=== PATIENT | female | born 1990 | race Caucasian/White ===

== ENCOUNTER 2019-11-09 11:05 | Emergency (ER) | payer OTHER, SELFPAY ==
[2019-11-09 11:17] VITALS: BP 104/49; PULSE 80; RESP 14; TEMP 36.7; O2SAT 100
--- NOTE | 2019-11-09 12:01 | ED.GENADULT ---
HPI - General Adult General Chief complaint: Upper Respiratory Infection Stated complaint: cough/burning in lungh Time Seen by Provider: 11/09/19 12:01 Source: patient and RN notes reviewed Mode of arrival: ambulatory Limitations: no limitations History of Present Illness HPI narrative: 29-year-old 20 weeks female presents with complaints of sore throat and cough for the past 2 days. Tylenol (last this morning @07:00) with little relief. No high fevers, drooling, neck or throat swelling. Pain is bilateral. Hurts to swallow. No voice change. Exacerbation factors consist of eating and drinking. No rhinorrhea. Nasal congestion. No nausea, vomiting, or abdominal pain. Tolerating liquids well. Denies chills, dyspnea, difficulty swallowing, jaw pain, dental pain, facial pain, foreign body sensation, and rash. Remains active. Some parts of this dictation were generated by voice recognition software and may contain typographical and/or grammatical inaccuracies. Related Data Home Medications Medication Instructions Recorded Confirmed [id number] fumarate-FA 28 tablet PO DAILY 11/09/19 11/09/19 [] Allergies Allergy/AdvReac Type Severity Reaction Status Date / Time No Known Allergies Allergy Verified 11/09/19 11:24 Review of Systems Review of Systems: Narrative: CONSTITUTIONAL: Denies fever, chills, sweats. EYES: Denies visual changes, redness, discharge. ENT: Denies rhinorrhea, otalgia. Complains of sore throat, congestion. CARDIOVASCULAR: Denies chest pain, palpitations, edema. RESPIRATORY: Denies dyspnea, wheezing. Complains of dry cough. GASTROINTESTINAL: Denies abdominal pain, nausea, vomiting, diarrhea. GENITOURINARY: Denies dysuria, hematuria, abnormal discharge. SKIN: Denies rash or itching. MUSCULOSKELETAL: Denies acute back pain, joint pain, or myalgia. NEUROLOGIC: Denies numbness or focal weakness. PSYCHIATRIC: Denies anxiety or depression. All systems reviewed & are unremarkable except as noted in HPI and below. [facility] Past Medical History Medical History (Updated 11/10/19 @ 00:00 by Dale Daemon) Surgical History Surgical History (Updated 11/09/19 @ 12:09 by JUANITA Ng) No significant past surgical history Family History Family History (Updated 11/09/19 @ 12:09 by JUANITA Ng) Mother Lung cancer Social History Social History (Updated 11/09/19 @ 12:10 by JUANITA Ng) Smoking packs per day: 0.5 Smoking cigarettes per day: 10.0 Years smoked: 12 Smoking pack-years: 6.00 Smoking status: Current every day smoker Tobacco type: cigarettes Second hand tobacco smoke exposure: Yes Alcohol intake: never Substance use: never Living arrangements: with family Occupation/Education: occupation Gender identity (if verbalized by the patient): Female Comments At time of signature, agree with nurse past medical, surgical, social, and family history. There is no relevant family history pertinent to the presenting complaint. Exam Narrative: Exam Narrative: GENERAL: This is a well-nourished, well-developed patient, in no apparent distress. Speaks in full sentences without deficits and ambulates with steady gait without dyspnea. HEAD: normocephalic, atraumatic. EYES: PERRL. Sclera clear/white. Vision is grossly intact. EARS: External ears normal, auditory canals clear and without drainage, TMs normal without perforation. Hearing grossly intact. NOSE: External nose normal with no obvious nasal discharge, nares with mild redness and enlarge turbinates, no rhinorrhea. MOUTH: Moist mucous membranes. THROAT: Mucous membranes moist, posterior pharynx with mild erythema, and no exudate to tonsil, normal tonsils, no drainage, no concern for Peritonsillar abscess. No drooling, trismus, or neck swelling. NECK: Neck supple, non-tender without lymphadenopathy, masses or thyromegaly. CARDIOVASCULAR: Regular rate
--- NOTE | 2019-11-09 12:21 | PC.NURSE ---
1210-- heart tones noted.
== END 2019-11-09 12:17 | disposition home or self-care (01) ==
PROVIDERS: Emergency Provider Nurse Practitioner Family
DX: O99.512 Diseases of the respiratory system complicating pregnancy, second trimester (principal); J02.0 Streptococcal pharyngitis; O99.332 Smoking (tobacco) complicating pregnancy, second trimester; F17.210 Nicotine dependence, cigarettes, uncomplicated; Z3A.20 20 weeks gestation of pregnancy
CPT/HCPCS: 87880; 99213; G0463

== ENCOUNTER 2022-01-01 09:15 | Emergency (ER) | payer OTHER, SELFPAY ==
[2022-01-01 09:19] VITALS: BP 105/65; PULSE 80; RESP 16; TEMP 36.7; O2SAT 100
--- NOTE | 2022-01-01 09:36 | ED.URI ---
HPI - URI/Sore Throat General Chief Complaint: Upper Respiratory Infection Stated Complaint: fever sore throat Time Seen by Provider: 01/01/22 09:36 Source: patient and RN notes reviewed Mode of arrival: ambulatory Limitations: no limitations History of Present Illness HPI Narrative: 31-year-old female presents with concern for fever, sore throat, headache, cough, nasal congestion and rhinorrhea for approximately 3 days. Reports she is taken Tylenol without relief. She denies shortness of breath, nausea, vomiting, diarrhea. MD elicited complaint: cough, sore throat and nasal congestion Related Data Allergies Allergy/AdvReac Type Severity Reaction Status Date / Time No Known Allergies Allergy Verified 11/09/19 11:24 Review of Systems Review of Systems: CONSTITUTIONAL: Report malaise, fever. EYES: Denies visual changes, redness, or discharge. ENT: Reports rhinorrhea, congestion, and sore throat. Denies sinus pain, otalgia CARDIOVASCULAR: Denies chest pain, palpitations, or edema. RESPIRATORY: Reports cough. Denies dyspnea. GASTROINTESTINAL: Denies abdominal pain, nausea, vomiting, diarrhea SKIN: Denies rash or itching. MUSCULOSKELETAL: Denies myalgia. NEUROLOGIC: Reports headache. All systems reviewed & are unremarkable except as noted in HPI and below PMFSH Past Medical History Medical History (Updated 01/01/22 @ 09:47 by Roselyn Suarez NP) Surgical History Surgical History (Updated 11/09/19 @ 12:09 by JUANITA Ng) No significant past surgical history Family History Family History (Updated 11/09/19 @ 12:09 by JUANITA Ng) Mother Lung cancer Social History Social History (Updated 11/09/19 @ 12:10 by JUANITA Ng) Smoking packs per day: 0.5 Smoking cigarettes per day: 10.0 Years smoked: 12 Smoking pack-years: 6.00 Smoking status: Current every day smoker Tobacco type: cigarettes Second hand tobacco smoke exposure: Yes Alcohol intake: never Substance use: never Gender identity (if verbalized by the patient): Female Comments At time of signature, agree with nursing past medical, surgical, social and family history. There is no relevant family history pertinent to the presenting complaint Exam Narrative: GENERAL: Nontoxic appearing and in no acute distress. HEAD: Normocephalic EYES: PERRLA, conjunctivae clear ENT: Nares clear, clear discharge. Mucous membranes moist. TM pearly ortega with dull light reflex bilaterally; no tragal tenderness. Oropharynx not erythematous without lesions. Tonsils not enlarged and without exudate, no drooling, no hoarseness, no trismus, uvula midline. NECK: Supple. No lymphadenopathy CHEST: Clear to auscultation, breath sounds equal. No wheezing, rhonchi, rales, or stridor. No respiratory distress, speaks in full sentences. Cough HEART: Regular rate and rhythm. No murmur heard. SKIN: Warm, dry, no rash. NEURO: Alert and oriented x3. PSYCH: Normal mood and affect Course Course Emergency Course: Patient is aware of diagnosis, understands and agrees to treatment plan. Anticipatory guidance given. Patient agrees to follow-up as directed and is aware of reasons to seek care at the emergency department. Portions of this record may have been created with voice recognition software Level of Care: Express Care Visit Vital Signs Vital signs: Vital Signs Temperature 98.0 F 01/01/22 09:19 Pulse Rate 80 01/01/22 09:19 Respiratory Rate 16 01/01/22 09:19 Blood Pressure 105/65 01/01/22 09:19 Pulse Oximetry 100 01/01/22 09:19 Temperature 98.0 F 01/01/22 09:19 Pulse Rate 80 01/01/22 09:19 Respiratory Rate 16 01/01/22 09:19 Blood Pressure 105/65 01/01/22 09:19 Pulse Oximetry 100 01/01/22 09:19 Reviewed. MDM - URI/Sore Throat MDM Narrative Medical decision making narrative: Differential diagnosis considered: Guerra virus, strep pharyngitis, allergic rhinitis, upper respiratory
== END 2022-01-01 09:51 | disposition home or self-care (01) ==
PROVIDERS: Emergency Provider Nurse Practitioner
DX: J06.9 Acute upper respiratory infection, unspecified (principal); F17.210 Nicotine dependence, cigarettes, uncomplicated
CPT/HCPCS: 87081; 87880; 99213; G0463

== ENCOUNTER 2024-07-05 08:53 | Emergency (ER) | payer OTHER, SELFPAY ==
[2024-07-05 09:00] VITALS: BP 108/67; PULSE 76; RESP 20; TEMP 36.6; O2SAT 100
--- NOTE | 2024-07-05 09:02 | ED.URI ---
HPI - URI/Sore Throat General Chief Complaint: Upper Respiratory Infection Stated Complaint: Chest Congestion/Cough Time Seen by Provider: 07/05/24 09:06 Source: patient, RN notes reviewed and old records reviewed Mode of arrival: ambulatory Limitations: no limitations History of Present Illness HPI Narrative: 33 year old female presents to [facility] care with complaints of cough, fevers up to 102F chest congestion and sore throat for the past 3 days. Patient reports that kids had strep throat about 3 weeks ago otherwise family has been healthy.She states that she does work at [employer] and is around the public. Patient reports that she has been taking DayQuil,NyQuil, Tylenol /Ibuprofen for her symptoms. Paien reports no body aches, nausea or vomiting or any diarrhea. MD elicited complaint: fever, cough, sore throat and other (upper chest burning with cough) Onset (ago): day(s) (3) Pain scale (0-10): 6 Treatments prior to arrival: other (DayQuil, NyQuil, cough medication) Related Data Allergies Allergy/AdvReac Type Severity Reaction Status Date / Time No Known Allergies Allergy Verified 07/05/24 09:08 Review of Systems Review of Systems: CONSTITUTIONAL: Reports malaise, chills, sweats, or fever. EYES: Denies visual changes, redness, or discharge. ENT: Reports rhinorrhea, congestion, no sinus pain,no otalgia and positive sore throat. CARDIOVASCULAR: Denies chest pain, palpitations, or edema. RESPIRATORY: Reports cough.? Denies dyspnea, states chest burning with cough GASTROINTESTINAL: Denies abdominal pain, nausea, vomiting, diarrhea SKIN: Denies rash or itching. MUSCULOSKELETAL: Denies myalgia. NEUROLOGIC: Denies headache. All systems reviewed & are unremarkable except as noted in HPI and below PMFSH Past Medical History Medical History Surgical History Surgical History No significant past surgical history Family History Family History Mother Lung cancer Social History Social History Smoking packs per day: 0.5 Smoking cigarettes per day: 10.0 Years smoked: 12 Smoking pack-years: 6.00 Smoking status: Former smoker Tobacco type: cigarettes Second hand tobacco smoke exposure: Yes Additional smoking assessment comments: 2022 Alcohol intake: never Substance use: never Living arrangements: with family Occupation/Education: occupation Gender identity (if verbalized by the patient): Female Comments At time of signature, agree with nursing past medical, surgical, social and family history. There is no relevant family history pertinent to the presenting complaint Exam Narrative: GENERAL: Well-appearing, well-nourished, and in no acute distress. HEAD: Normocephalic EYES: PERRLA, conjunctivae clear ENT: Nares clear, turbinates edematous and erythematous, clear discharge. Mucous membranes moist. TM pearly ortega with dull light reflex bilaterally; no tragal tenderness. Oropharynx erythematous without lesions. Tonsils red enlarged and without exudate, no drooling, no hoarseness, no trismus, uvula midline.post nasal drainage NECK: Supple. No lymphadenopathy CHEST: Clear to auscultation, breath sounds equal. No wheezing, rhonchi, rales, or stridor. No respiratory distress, speaks in full sentences.Cough noted SAO2 100% on room air HEART: Regular rate and rhythm. No murmur heard. SKIN: Warm, dry, no rash. NEURO: Alert and oriented x3. PSYCH: Normal mood and affect Course Course Emergency Course: Patient is aware of diagnosis, understands and agrees to treatment plan.? Anticipatory guidance given.? Patient agrees to follow-up as directed and is aware of reasons to seek care at the emergency department. Portions of this record may have been created with voice recognition software Level of Care: Express Care Visit Vital Signs Vital signs: Vital Signs Temperature 36.6 C 07/05/24 09:00 Pulse Rate 76 07/05/24 09:00 Respiratory Rate 20 07/05/24 09:00 Blood Pressure 108/67 07/05/24 09:00 Pulse Oximetry 100 07/05/24 09:00 Temperature 36.6 C 07/05/24 09:00 Pulse Rate 76 07/05/24 09:00 Respiratory Rate 20 07/05/24 09:00 Blood Pressure 108/67 07/05/24 09:00 Pulse Oximetry 100 07/05/24 09:00 Reviewed MDM - URI/Sore Throat MDM Narrative Medical decision making narrative: Differential diagnosis considered: Guerra virus, strep pharyngitis, allergic rhinitis, upper respiratory tract infection, sinusitis, rhinosinusitis, nasopharyngitis. viral pharyngitis, otitis media, otitis externa, pneumonia, bronchitis, viral cough syndrome, viral syndrome, and influenza.? Exam findings show no acute concerns or changes; patient is non-toxic appearing and is in no distress.? Patient is appropriate for outpatient treatment and follow-up. Differential Diagnosis Differential diagnosis: Likely upper respiratory infection, viral infection, pharyngitis and other (strep pharyngitis, cough) Medical Records Attestation: I reviewed the patient's medical records. Lab Data Attestation: I reviewed the patient's lab results. Lab results narrative: strep screen negative, culture sent Labs: Lab Results 07/05/24 Range/Units 09:26 POC Grp A Strep Screen Negative (Negative) Critical Care Time Critical Care Time Critical Care Time: No Discharge Plan Discharge Clinical Impression: Upper respiratory infection with cough and congestion Patient Disposition: Home, Self-Care Condition: Stable Instructions: Upper Respiratory Infection (ED), Acute Cough (ED) Additional Instructions: Increase fluids especially juices and water [id number] cough and cold medicine of your choice for your symptoms Nasal spray as prescribed Steroids as directed--take with food heat to the face 20-30 minutes 4-6 times a day for pain Salt water gargles, throat lozenges or throat sprays as desired Mucinex DM make sure you drink plenty of fluids with this medicine If your symptoms persist, change or worsen significantly before you can contact your personal physician then please, without delay, go to the emergency department for further evaluation. Follow-up with PCP in 7-10 days or sooner if needed Tylenol or Ibuprofen for any fever or pain Prescriptions: New prednisone 20 mg tablet 20 mg PO BID Qty: 10 0RF ipratropium bromide 21 mcg (0.03 %) spray,non-aerosol 2 spray intranasal BID Qty: 30 0RF Rx Instructions: administer into each nostril dextromethorphan-guaifenesin 20-400 mg tablet 1 tablet PO Q4-6H PRN (Reason: cough) Qty: 14 0RF Follow-up/Referrals: PHYSICIAN,SPECIMEN TECHNICIAN [Primary Care Provider] - Stand Alone Forms: Work/School Release IP Time of Disposition: 09:33 Quality [place] Coma Scale Eyes: Open Verbal: Oriented and Alert Motor: Follows Commands Mary Kate Coma Total Score: 15
[2024-07-05 09:28] LABS: EDSTREPNEGPOS1 Negative (Negative)
== END 2024-07-05 09:37 | disposition home or self-care (01) ==
PROVIDERS: Emergency Provider Registered Nurse
DX: J06.9 Acute upper respiratory infection, unspecified (principal); Z87.891 Personal history of nicotine dependence
CPT/HCPCS: 87081; 87880; 99213; G0463